=== PATIENT | male | born 1965 | race Caucasian/White ===

== ENCOUNTER 2016-06-07 19:53 | Emergency (ER) | payer OTHER ==
[2016-06-07 20:19] LABS: MANUAL DIFF NEEDED? NO
--- NOTE | 2016-06-07 20:23 | PROVIDER DOCUMENTATION ---
HPI-Neurological Disorder - General Chief Complaint: Stroke-Like Symptoms Stated Complaint: LT SIDE FACIAL NUMBNESS Time Seen by Provider: 06/07/16 20:12 Source: patient Allergies/Adverse Reactions: Patient Allergies Allergy/AdvReac Type Severity Reaction Status Date / Time No Known Allergies Allergy Verified 02/12/13 03:59 Home Medications: Home Medication List Medication Instructions Recorded Confirmed Last Taken Type Cephalexin 500 mg PO TID #21 capsule 02/12/13 Unknown Rx Ketorolac [Toradol] 10 mg PO Q6HR #20 tablet 02/12/13 Unknown Rx Metronidazole [Flagyl] 500 mg PO TID #21 tablet 02/12/13 Unknown Rx - History of Present Illness-Neuro Nature of Presenting Problem: 50 Y/O M presents to ED with Stroke-Like symptoms. Pt c/o of 6:30-7 am this morning of left side weakness, and mild numbness that began, states no other c/ o with no other issues, able to walk with no slurred speech. Severity: reports: moderate Onset/Duration: reports: this morning Timing: reports: still present Context: reports: facial droop (left side4) Character of Altered Mental Status: reports: unchanged from baseline Any recent trauma/injury?: reports: none Character of Deficits: reports: new weakness New weakness or altered sensation location:: reports: left facial Cognitive Baseline: alert, oriented x3 Gait Baseline: walks without assistance Associated Symptoms: reports: weakness (facial) Similar Symptoms Previously?: No Recently seen or treated by another doctor?: No Review of Systems - Adult - REVIEW OF SYSTEMS - ADULT Constitutional: denies: chills, fever Eyes: reports: no symptoms reported Ears, Nose, Mouth & Throat: reports: no symptoms reported Cardiovascular: reports: no symptoms reported Respiratory: reports: no symptoms reported Gastrointestinal: reports: no symptoms reported Genitourinary: reports: no symptoms reported Musculoskeletal: reports: muscle weakness (in face) Integumentary: reports: no symptoms reported Neurological: reports: other (stroke like symptoms.). denies: headache/ migraines, seizure, slurred speech Psychiatric: reports: no symptoms reported Endocrine: reports: no symptoms reported Hematologic/Lymphatic: reports: no symptoms reported Allergic/Immunologic: reports: no symptoms reported All Other Systems: Reviewed and Negative Past History - Adult - PAST MEDICAL HISTORY-ADULT Review of Records: reports: Old Records Reviewed, Nursing Assessment Review, Medications Reviewed, Social history reviewed & non-contributory. - SOCIAL HISTORY Smoking: non-smoker Substance Use: none/never Alcohol Use Frequency: never Living Situation: family Physical Exam- Neurological - Physical Exam-Neuro Initial Vital Signs Reviewed: Yes General Appearance: appears well, alert, no apparent distress Eye Exam: bilateral eye: normal inspection, PERRL, EOMI HENMT: normocephalic/atraumatic, moist mucous membranes, normal ENT inspection, TMs normal, pharynx normal Head Injury: no evidence of injury Neck: non-tender, full range of motion, supple Respiratory: chest non-tender, lungs clear, normal breath sounds Cardiovascular: normal peripheral pulses, regular rate, rhythm Abdominal Exam: normal bowel sounds, non tender, soft Lymphatic: no adenopathy Extremity: normal range of motion, non-tender, normal gait call center nurse Exam: normal hearing, normal speech, PERRL, facial droop (left side), facial weakness (left side) Coordination/Gait: normal finger to nose, normal gait Motor/Sensory: no motor deficit, no sensory deficit, no pronator drift Neurologic: call center nurse II-XII nml as tested, grossly normal Integumentary: normal color, normal turgor, warm/dry Psych/Mental Status: normal mood/affect, normal thought content, normal thought process, oriented x 3 - Glascow Coma Scale Best Eye Response: (4) open spontaneously Best Verbal Response: (5) oriented Best Motor Response: (6) obeys commands Total Glascow Score: 15 Progress - PLAN OF CARE/RESULTS Progress/Plan/Lab Results: Laboratory Tests 06/07/16 06/07/16 06/07/16 20:05 20:05 20:05 WBC 4.89 RBC 4.97 Hgb 14.8 Hct 43.6 MCV 87.7 MCH 29.8 MCHC 33.9 RDW Std Deviation 12.8 Plt Count 156 MPV 10.8 H Immature Gran % (Auto) 0.0 Neut % (Auto) 41.3 L Lymph % (Auto) 42.7 Ponce % (Auto) 11.7 H Eos % (Auto) 3.5 Baso % (Auto) 0.8 Immature Gran # (Auto) 0.00 Neut # (Auto) 2.02 Lymph # (Auto) 2.09 Ponce # (Auto) 0.57 Eos # (Auto) 0.17 Baso # (Auto) 0.04 PT 10.6 INR 1.00 PTT (Actin FS) 29.2 Sodium 138 Potassium 4.1 Chloride 98 Carbon Dioxide 27 Anion Gap 13 BUN 21 Creatinine 1.2 Estimated GFR/1.73 m2 > 60 BUN/Creatinine Ratio 18 Glucose 88 Calculated Osmolality 278 Calcium 9.5 Total Bilirubin 0.50 AST 40 H ALT 28 Alkaline Phosphatase 76 Troponin T Total Protein 7.5 Albumin 4.5 Globulin 3.0 Albumin/Globulin Ratio 1.5 06/07/16 20:05 WBC RBC Hgb Hct MCV MCH MCHC RDW Std Deviation Plt Count MPV Immature Gran % (Auto) Neut % (Auto) Lymph % (Auto) Ponce % (Auto) Eos % (Auto) Baso % (Auto) Immature Gran # (Auto) Neut # (Auto) Lymph # (Auto) Ponce # (Auto) Eos # (Auto) Baso # (Auto) PT INR PTT (Actin FS) Sodium Potassium Chloride Carbon Dioxide Anion Gap BUN Creatinine Estimated GFR/1.73 m2 BUN/Creatinine Ratio Glucose Calculated Osmolality Calcium Total Bilirubin AST ALT Alkaline Phosphatase Troponin T < 0.010 Total Protein Albumin Globulin Albumin/Globulin Ratio Orders Category Date Time Status Cardiac Monitoring DIRECTED Care 06/07/16 20:03 Active Finger Stick Blood Sugar (ED) DIRECTED Care 06/07/16 20:03 Active Saline Loc NOW Care 06/07/16 20:03 Active HEAD W/O CONTRAST [CT] Stat Exams 06/07/16 20:03 Taken CBC WITH ELECTRONIC DIFF [HEME] Stat Lab 06/07/16 20:05 Completed COMPREHENSIVE METABOLIC PANEL [CHEM] Stat Lab 06/07/16 20:05 Completed PROTIME WITH INR [COAG] Stat Lab 06/07/16 20:05 Completed PTT [COAG] Stat Lab 06/07/16 20:05 Completed TROPONIN T Stat Lab 06/07/16 20:05 Completed Vital Signs - 24 hr 06/07/16 20:01 Temperature 98.3 F Pulse Rate 62 Blood Pressure 151/82 O2 Sat by Pulse 100 Oximetry - CT/MRI 1 CT Study: Head Impression: Normal CT Results: NAP, Paranasal sinus dz. Departure - Departure Time of Disposition Order: 22:10 DIAGNOSIS: Marie palsy Disposition: HOME 01 Certified Medical Emergency: Emergent Condition: Stable Additional Instructions: ED Follow Up Instructions: You have been treated by a care provider in the Emergency Department. These instructions are being provided to you so you can have an understanding of how to care for yourself upon discharge. Upon discharge from the Emergency Department, you are responsible for making arrangements for follow-up care by a physician of your choice. Take all prescribed medications as directed. Return to the Emergency Department immediately for any new or worsening symptoms. You may call the Physician Referral phone number at [phone] to obtain a list of Physicians who are taking new patients. Attestation - Scribe Verification/Attestation Scribe:: Rachel Chapman Acting as Scribe for:: Grant Vinson Scribe documention review:: This chart was documented by a scribe and accurately reflects the service the provider performed and the decisions made by the provider.
[2016-06-07 20:24] LABS: BASO% 0.8 % (0.0-0.8); EOS# 0.17 X1000 (0.0-0.7); EOS% 3.5 % (0.0-10.0); HEMATOCRIT 43.6 % (42.0-52.0); HEMOGLOBIN 14.8 g/dL (14.0-18.0); LYMPH# 2.09 X1000 (1.2-3.4); LYMPH% 42.7 % (20.5-51.1); MCH 29.8 PG (27-31); MCHC 33.9 g/dL (33-37); MCV 87.7 FL (81-99); MONO# 0.57 X1000 (0.11-0.59); MONO% 11.7 % (1.7-9.3); MPV 10.8 FL (7.4-10.4); NEUT% 41.3 % (42.2-75.2); PLT 156 X1000 (130-400); RBC 4.97 XMIL (4.7-6.1)
[2016-06-07 20:31] LABS: PROTIME 10.6 Seconds (9.2-11.7); PTT 29.2 Seconds (22.0-36.0)
[2016-06-07 20:45] LABS: AGAP 13; ALBUMIN 4.5 g/dL (3.5-5.0); ALKALINE PHOSPHATASE 76 U/L (32-122); BUN 21 mg/dL (8-22); CALCIUM 9.5 mg/dL (8.8-10.2); CHLORIDE 98 mmol/L (98-107); COSMO 278; GOT 40 U/L (10-34); GPT 28 U/L (10-44); POTASSIUM 4.1 mmol/L (3.5-5.1); SODIUM 138 mmol/L (136-145); TCO2 27 mmol/L (25-35); TOTAL PROTEIN 7.5 g/dL (6.3-8.3)
[2016-06-07] MEDS ORDERED: ZOVIRAX PO ONE (22:23)
[2016-06-07 22:26] VITALS: BP 150/78
--- NOTE | 2016-06-08 09:00 | Diag Imaging Result Document ---
PROCEDURE NAME: HEAD W/O CONTRAST - 06/07/2016 CT OF THE HEAD WITHOUT CONTRAST: FINDINGS: There is no evidence of mass effect, bleed, or abnormal extraaxial fluid collection. There are no previous studies. There is some mucosal thickening of the visualized ethmoid air cells and fluid and thickening in the sphenoid sinuses. IMPRESSION: 1. No evidence of acute intracranial disease. 2. Paranasal sinuses changes, as described.
== END 2016-06-07 22:32 | disposition home or self-care (01) ==
LOC: ED 19:53
DX: G51.0 Bell's palsy (principal); R29.810 Facial weakness; M62.81 Muscle weakness (generalized); R20.0 Anesthesia of skin
CPT/HCPCS: 70450; 80053; 82948; 84484; 85025; 85610; 85730